=== PATIENT | female | born 1945 | race Caucasian/White ===

== ENCOUNTER → 2018-12-17 | Outpatient (CLI) | payer MEDICARE | END | disposition home or self-care (01) | LOC: PCVCCLINIC 10:15 | PROVIDERS: ATTEND Internal Medicine | DX: R07.9 Chest pain, unspecified (principal); I10 Essential (primary) hypertension; E78.5 Hyperlipidemia, unspecified; R93.1 Abnormal findings on diagnostic imaging of heart and coronary circulation; J42 Unspecified chronic bronchitis | CPT/HCPCS: 93005; G0463 ==

== ENCOUNTER → 2019-01-09 | Outpatient (CLI) | payer MEDICARE ==
[~2019-01-09] MED LIST: REGADENOSON 0.4 MG/5 ML DISP.SYRIN. IV ONE
--- NOTE | 2019-01-09 13:59 | PCVCIMAG ---
APPROVED REPORT Imaging Protocol: Rest Tc-99m/Stress Tc-99m 1 day Study performed: 01/09/2019 10:32:50 Indication: Chest pain, High Ca Score Patient Location: Out-Patient Stress Nurse: Diana Tomlinson RN MD Tech:Lea Calvillonataliia [facility] Ht: 5 ft 0 in Wt: 122 lbs BSA: 1.51 m2 HR: 76 bpm BP: 182/77 mmHg BMI: 23.8 Rhythm: Nomal Sinus Rhythm Medical History Medical History: Hyperlipidemia, HTN, COPD, Current Smoker Medications: Albuterol, Amlodipine, Tricor, Atenolol, Crestor Allergies: Codiene Cardiac Risk Factors: Age Pretest Chest Pain Characteristics: No chest pain Exercise History: Sedentary Meds Held (24 hrs): Atenolol Resting Data Rest SPECT myocardial perfusion imaging was performed in supine position 45 minutes following the intravenous injection of 10.9 mCi of Tc-99m Sestamibi. Time of rest injection: 0945 Date: 01/09/2019 Administration Route: IV Administration Site: Right AC Pharmacologic Stress Pharmacologic stress test was performed by injecting Regadenoson 0.4 mg IV push over 10-15 seconds immediately followed by the intravenous injection of 34.1 mCi of Tc-99m Sestamibi. Time of stress injection: 1100 Date: 01/09/2019 Administration Route: IV Administration Site: Right AC Gated Stress SPECT was performed 45 minutes after stress injection. The images were gated to evaluate regional wall motion and calculate left ventricular ejection fraction. Stress Test Details Stress Test: Pharmacologic stress testing performed using 0.4 mg of regadenoson per 5 mL given IV over 10 seconds. Reason for pharmacologic stress test: Jasmina has COPD. HRMax Heart Rate (APMHR): 149 bpm Resting HR: 76 bpmTarget HR (85% APMHR): 126 bpm Max HR Achieved: 100 bpm % of APMHR: 67 Recovery HR: 85 bpm BP Resting BP: 182/77 mmHg Max BP: 212/94 mmHg Recovery BP: 170/76 mmHg ECG Resting ECG: Nomal Sinus Rhythm Stress ECG: Sinus Tachycardia Arrhythmia: Rare PVC's Recovery ECG: Sinus Rhythm Clinical Reason for Termination: Completed protocol Stress Symptoms: Dyspnea, Headache, Lightheaded Exercise duration: 0 min 55 sec Symptoms resolved with caffeine. Stress ECG Conclusion 1. Adequate response to intravenous Lexiscan 2. Inadequate heart rate for ECG diagnosis Study Data Post stress, the left ventricular ejection was 79%.. SSS: 0 SRS: 0 SDS: 0 TID = 1.00. Perfusion Normal left ventricular perfusion. Normal perfusion on both the stress and rest images. Wall Motion Normal left ventricular wall motion. Nuclear Conclusion ECG Findings: non-diagnostic Clinical Findings: negative for ischemia Nuclear Findings: negative for ischemia Exercise Capacity: not assessed Left Ventricular Function: normal 1. Low risk study 2. Post stress left ventricular ejection fraction of 79% without wall motion abnormalities Interpreted by: Neo Hess MD Electronically Approved: 01/09/2019 13:59:03 <Conclusion> 1. Adequate response to intravenous Lexiscan 2. Inadequate heart rate for ECG diagnosis
--- NOTE | 2019-01-09 14:01 | PCVCIMAG ---
APPROVED REPORT Study performed: 01/09/2019 08:59:41 EXAM: Comprehensive 2D, Doppler, and color-flow Echocardiogram Patient Location: Echo lab Status: routine BSA: 1.51 HR: 69 bpmBP: 144/60 mmHg Rhythm: NSR Other Information Study Quality: Technically Difficult Risk Factors: Cardiac Risk Factors: HTN, Hyperlipidemia Indications Chest Pain Elevated calcium score, COPD 2D Dimensions IVSd: 9.18 (7-11mm)LVOT Diam: 16.24 (18-24mm) LVDd: 40.64 mm PWd: 9.10 (7-11mm)Ascending Ao: 25.40 (22-36mm) LVDs: 26.01 (25-40mm) Left Atrium: 31.12 (27-40mm) Aortic Root: 20.31 mm LV Single Plane 4CH: 65.64 % LV Single Plane 2CH: 70.06 % Biplane EF: 67.9 % Volumes Left Atrial Volume (Systole) Single Plane 4CH: 23.66 mLSingle Plane 2CH: 24.20 mL LA ESV Index: 16.00 mL/m2 Aortic Valve AoV Peak Moustapha.: 1.81 m/s AO Peak Gr.: 13.05 mmHgLVOT Max P.81 mmHg LVOT Max V: 1.30 m/s RODOLFO Vmax: 1.50 cm2 Mitral Valve E/A Ratio: 1.0 MV Decel. Time: 176.60 ms MV E Max Moustapha.: 0.98 m/s MV A Moustapha.: 1.02 m/s TDI E/Lateral E': 12.25E/Medial E': 10.89 Medial E' Moustapha.: 0.09 m/s Lateral E' Moustapha.: 0.08 m/s Pulmonary Valve PV Peak Gr.: 4.75 mmHg Pulmonary Vein P Vein S: 0.75 m/sP Vein A: 0.59 m/s P Vein D: 0.71 m/sP Vein A Dur.: 93.4 msec P Vein S/D Ratio: 1.06 Left Ventricle The left ventricle is normal size. There is normal LV segmental wall motion. There is normal left ventricular wall thickness. Left ventricular systolic function is normal. The left ventricular ejection fraction is within the normal range. LVEF is 60-65%. The left ventricular diastolic function is normal. Right Ventricle The right ventricle is normal size. The right ventricular systolic function is normal. Atria The left atrium size is normal. The right atrium size is normal. Aortic Valve The aortic valve is normal in structure. No aortic regurgitation is present. There is no aortic valvular stenosis. Mitral Valve The mitral valve is normal in structure. There is no mitral valve regurgitation noted. No evidence of mitral valve stenosis. Tricuspid Valve The tricuspid valve is normal in structure. There is no tricuspid valve regurgitation noted. Pulmonic Valve The pulmonary valve is normal in structure. There is no pulmonic valvular regurgitation. Great Vessels The aortic root is normal in size. IVC is normal in size and collapses >50% with inspiration. Pericardium There is no pericardial effusion. <Conclusion> The left ventricle is normal size. LVEF is 60-65%. The aortic valve is normal in structure. The mitral valve is normal in structure. The tricuspid valve is normal in structure. The pulmonary valve is normal in structure. There is no pericardial effusion.
== END | disposition home or self-care (01) ==
LOC: PCVCIMAG 08:45
PROVIDERS: ATTEND Internal Medicine
DX: R07.9 Chest pain, unspecified (principal); R93.1 Abnormal findings on diagnostic imaging of heart and coronary circulation; E78.5 Hyperlipidemia, unspecified; I25.10 Atherosclerotic heart disease of native coronary artery without angina pectoris; I10 Essential (primary) hypertension
CPT/HCPCS: 78452; 93017; 93306; A9500; J2785; G0463